=== PATIENT | male | born 1975 ===

== ENCOUNTER 2017-11-27 16:51 | Emergency (ER) | payer MEDICAID, OTHER ==
[2017-11-27 16:51] VITALS: BMI 43.0
[2017-11-27 19:31] LABS: ALB/GLOB RATIO 1.3 (1.0-2.1); ALBUMIN 4.1 g/dL (3.5-5.0); ALT/SGPT 26 U/L (21-72); AST/SGOT 25 U/L (17-59); BLOOD UREA NITROGEN 13 mg/dl (9-20); CALCIUM 9.1 mg/dL (8.4-10.2); GFR NON-AFRICAN AMERICAN > 60; LIPASE 204 U/L (23-300)
--- NOTE | 2017-11-27 19:40 | ED PDOC ---
HPI: Male Pain Time Seen by Provider: 11/27/17 18:02 Chief Complaint (Nursing): GI Problem Chief Complaint (Provider): GI Problem History Per: Patient History/Exam Limitations: no limitations Onset/Duration Of Symptoms: Days Current Symptoms Are (Timing): Still Present Additional Complaint(s): 42 y/o male with a PMHx of a learning disability, HTN, Type II DM and high cholesterol presents to the ED with his mother for evaluation of rectal bleeding. Patient just keeps repeating "I'm better now. Can I have apple juice and a sandwich". When asked directly why he is here, he is unable to respond. Mother states for the last two days, the patient has had bright red blood per the rectum with each bowel movement. Mother denies any suspicion of any pain. Patient has been tolerating PO. Otherwise, denies diarrhea, fever and other new complaints. PMD: Leoncio Love Past Medical History Reviewed: Historical Data, Nursing Documentation, Vital Signs Vital Signs: Last Vital Signs Temp 98.1 F 11/27/17 19:22 Pulse 64 11/27/17 19:22 Resp 20 11/27/17 19:22 BP 138/73 11/27/17 19:22 Pulse Ox 98 11/27/17 19:22 - Medical History PMH: Anemia (FE DEFICIENCY), Anxiety, Bipolar Disorder, Depression, Diabetes, HTN, Hypercholesterolemia, Post Traumatic Stress Disorder, Schizophrenia, Sleep Apnea (Uses CPap @ night) Denies: Hepatitis, HIV, Chronic Kidney Disease, Seizures, Sexually Transmitted Disease - Surgical History Surgical History: No Surg Hx - Family History Family History: States: Unknown Family Hx - Immunization History Hx Tetanus Toxoid Vaccination: Yes Hx Influenza Vaccination: Yes Hx Pneumococcal Vaccination: Yes - Home Medications Home Medications: Ambulatory Orders Medication Instructions Recorded Benztropine [Cogentin] 1 mg PO BID #60 tab 11/02/16 Lisinopril [Zestril] 20 mg PO DAILY #30 tab 11/02/16 QUEtiapine [Seroquel] 200 mg PO HS #30 tab 11/02/16 metFORMIN [glucOPHAGE] 500 mg PO BID #60 tab 11/02/16 risperiDONE [RisperDAL Tab] 2 mg PO BID #60 tab 11/02/16 traZODone [Desyrel] 100 mg PO HS #30 tab 11/02/16 Aspirin [Lo-Dose Aspirin EC] 81 mg PO DAILY 10/23/17 Atorvastatin [Lipitor] 20 mg PO DAILY 10/23/17 Cerovite 1 tab DAILY 10/23/17 Cholecalciferol (Vitamin D3) 1,000 unit PO DAILY 10/23/17 [Vitamin D3] Topiramate [Topamax] 25 mg PO DAILY 10/23/17 - Allergies Allergies/Adverse Reactions: Allergies Allergy/AdvReac Type Severity Reaction Status Date / Time No Known Allergies Allergy Verified 10/23/17 07:56 Review of Systems ROS Statement: Except As Marked, All Systems Reviewed And Found Negative Constitutional: Negative for: Fever Gastrointestinal: Positive for: Other (Rectal Bleeding). Negative for: Diarrhea Physical Exam - Reviewed Nursing Documentation Reviewed: Yes Vital Signs Reviewed: Yes - Physical Exam Appears: Positive for: Well (and obese), No Acute Distress Cardiovascular/Chest: Positive for: Regular Rate, Rhythm. Negative for: Murmur Respiratory: Positive for: Normal Breath Sounds. Negative for: Respiratory Distress Gastrointestinal/Abdominal: Positive for: Normal Exam, Soft. Negative for: Tenderness Male Genital Exam: Positive for: normal genitalia (external) Rectal: Positive for: Other (No fissures. No visible blood externally. On digital exam, no stool in rectal vault. Unable to send FOBT at this time.). Negative for: Hemorrhoids - Laboratory Results Result Diagrams: 11/27/17 19:08 - ECG O2 Sat by Pulse Oximetry: 98 (RA) Pulse Ox Interpretation: Normal Medical Decision Making Medical Decision Making: Time: 1905 A/P: Workup for GI bleed -- Patient appears stable at this time. -- Labs ordered. If labs results are normal, patient to follow up with PMD. If abnormal, consider CT Abd/Pelvis -- Type and Screen -- VBG -- EKG -- CMP -- Lipase -- CBC with Differentials -- PTT -- Prothrombin Time -- CXR Portable -- Occult Blood, Stool, ER -- Urinalysis -- Patient signed out to Dr. Betancourt, pending labs and possible CT. Scribe Attestation: Documented by Jessica Engle, acting as a scribe for Judy Brown MD. Provider Scribe Attestation: All medical record entries made by the Scribe were at my direction and personally dictated by me. I have reviewed the chart and agree that the record accurately reflects my personal performance of the history, physical exam, medical decision making, and the department course for this patient. I have also personally directed, reviewed, and agree with the discharge instructions and disposition. Disposition - Patient ED Disposition Is Patient to be Admitted: Transfer of Care - Disposition Disposition: Transfer of Care Disposition Time: 19:05 Condition: GOOD Forms: [facility] ([place]) Patient Signed Over To: Maciel Betancourt
--- NOTE | 2017-11-27 19:59 | ED PDOC ---
- Laboratory Results Result Diagrams: 11/27/17 19:08 11/27/17 19:08 - ECG O2 Sat by Pulse Oximetry: 98 (RA) Pulse Ox Interpretation: Normal Medical Decision Making Medical Decision Making: Time: 1899 -- Patient endorsed to me by Dr. Brown, pending labs Time: 2056 -- Labs demonstrate stable hemoglobin. Patient and mother made aware of low sodium. Patient is stable for discharge home with instructions to follow up with Dr. Love. Scribe Attestation: Documented by Jessica Engle, acting as a scribe for Maciel Betancourt MD. Provider Scribe Attestation: All medical record entries made by the Scribe were at my direction and personally dictated by me. I have reviewed the chart and agree that the record accurately reflects my personal performance of the history, physical exam, medical decision making, and the department course for this patient. I have also personally directed, reviewed, and agree with the discharge instructions and disposition. Disposition Counseled Patient/Family Regarding: Studies Performed, Diagnosis, Need For Followup - Clinical Impression Clinical Impression: Rectal bleed - POA Present On Arrival: None - Disposition Disposition: Routine/Home Disposition Time: 20:50 Condition: IMPROVED Additional Instructions: follow up with your primary doctor Dr Love in 1-2 days for referral for GI doctor return to the ED with any worsening or concerning symptoms Instructions: Bloody Stools, Adult (DC), Hyponatremia (DC) Forms: [employer] (Vietnamese), [employer] (Serbian) Print Language: SYRIAC
[2017-11-27 20:00] LABS: BASO % 0.6 % (0.0-2.0); EOS # 0.1 K/uL (0.0-0.7); EOS % 1.5 % (0.0-4.0); HEMOGLOBIN 13.9 g/dL (12.0-18.0); LYMPH # 1.5 K/uL (1.0-4.3); LYMPH % 21.4 % (20.0-40.0); MEAN CELL VOLUME 78.4 fl (80.0-94.0); MEAN CORPUSCULAR HEMOGLOBIN 26.2 pg (27.0-31.0); MEAN CORPUSCULAR HGB CONC 33.4 g/dL (33.0-37.0); MEAN PLATELET VOLUME 8.4 fl (7.2-11.7); MONO # 0.8 K/uL (0.0-0.8); MONO % 10.7 % (0.0-10.0); NEUT # 4.7 K/uL (1.8-7.0); NEUT % 65.8 % (50.0-75.0); NRBC % 0.3 % (0.0-0.0); RBC 5.31 Mil/uL (4.40-5.90); RED CELL DISTRIBUTION WIDTH 14.5 % (11.5-14.5); WHITE BLOOD COUNT 7.2 K/uL (4.8-10.8)
[2017-11-27] MEDS ORDERED: Sodium Chloride 0.9% 1,000 ML IV STA (20:26)
[2017-11-28 02:59] VITALS: BP 131/63; PULSE 82; RESP 16; TEMP 97.9
[2017-11-28 06:26] VITALS: O2SAT 98
--- NOTE | 2017-11-28 06:54 | CARD ---
APPROVED REPORT Date of service: 11/27/2017 EKG Measurement Heart [id number] <Conclusion> Normal sinus rhythm Nonspecific ST and T wave abnormality Abnormal ECG
--- NOTE | 2017-11-28 09:56 | RAD ---
Date of service: 11/27/2017 HISTORY: possible admission COMPARISON: 12/25/2016 FINDINGS: LUNGS: The lungs are well inflated and clear. PLEURA: No pleural effusions or pneumothorax. CARDIOVASCULAR: The heart is normal in size. No aortic atherosclerotic calcification present. OSSEOUS STRUCTURES: Within normal limits for the patient's age. VISUALIZED UPPER ABDOMEN: Normal. OTHER FINDINGS: None. IMPRESSION: No active pulmonary disease.
== END 2017-11-27 21:15 | disposition home or self-care (01) ==
LOC: H.ER 16:51
DX: K62.5 Hemorrhage of anus and rectum (principal); E11.9 Type 2 diabetes mellitus without complications; Z86.59 Personal history of other mental and behavioral disorders; F43.10 Post-traumatic stress disorder, unspecified; I10 Essential (primary) hypertension; Z79.84 Long term (current) use of oral hypoglycemic drugs; Z79.82 Long term (current) use of aspirin; E78.00 Pure hypercholesterolemia, unspecified